=== PATIENT | female | born 2000 | race Caucasian/White ===

== ENCOUNTER 2019-12-07 14:13 | Emergency (ER) | payer OTHER ==
[~2019-12-07] VITALS: Ht 165.1 cm; Wt 60.0 kg
[2019-12-07 14:38] VITALS: BP 126/84
[2019-12-07] MEDS ORDERED: HYDROcodone/APAP 5/325 TABLET PO ONE (16:00)
[2019-12-07] MEDS ORDERED: HYDROcodone/APAP 5/325 TABLET ONE (16:09)
--- NOTE | 2019-12-07 16:18 | NUR ---
MEDS ADMIN PER DEC.
== END 2019-12-07 16:39 | disposition home or self-care (01) ==
LOC: ED 16:35
DX: S52.124A Nondisplaced fracture of head of right radius, initial encounter for closed fracture (principal); W00.0XXA Fall on same level due to ice and snow, initial encounter; Y93.31 Activity, mountain climbing, rock climbing and wall climbing; Y92.828 Other wilderness area as the place of occurrence of the external cause; Y99.8 Other external cause status
CPT/HCPCS: 99283